=== PATIENT | female | born 1995 | race Caucasian/White ===

== ENCOUNTER 2019-08-23 06:37 | Outpatient (CLI) | payer BC ==
[2019-08-23 06:55] VITALS: BP 137/86
[2019-08-23 14:58] VITALS: PULSE 81; RESP 18; TEMP 96.8
--- NOTE | 2019-10-02 11:45 | P.MSEPDOC ---
Presenting Problems - Arrival Data Date of Arrival on Unit: 08/23/19 Time of Arrival on Unit: 06:39 Mode of Transport: Ambulatory - Complaint OB-Reason for Admission/Chief Complaint: Possible Onset of Labor Comment: pt stated contractions started at 0230 and range between 2-8 minutes apart Medical History - Information : 1 Para: 0 Term: 0 : 0 Abortions: Spontaneous or Elective: 0 Number of Living Children: 0 - Gestational Age Gestational Age by FARHAN (wks/days): 40 Weeks and 3 Days - History Complications: GBS+ Review of Systems - Review of Systems Constitutional: No problems Breast: No problems ENT: No problems Cardiovascular: No problems Respiratory: No problems Gastrointestinal: No problems Genitourinary: No problems Musculoskeletal: No problems Neurological: No problems Skin: No problems Vital Signs - Temperature Temperature: 96.8 F Temperature Source: Temporal Artery Scan - Pulse Right Brachial Pulse Rate: 81 Pulse Assessment Method: Automatic Cuff - Respirations Respiratory Rate: 18 Oxygen Delivery Method: Room Air O2 Sat by Pulse Oximetry: 99 - Blood Pressure Right Arm Blood Pressure: 137/86 Blood Pressure Mean: 103 Blood Pressure Source: Automatic Cuff Medical Screen Scoring (Pre) - Cervical Exam Dilation: 1-3 cm = 1 Effacement: More than 50% = 2 Membranes: Intact - Uterine Contractions Frequency: > 5 minutes apart = 1, > or = 36 weeks =2 Duration: > 40 seconds = 2 Intensity: N/A - Maternal Vital Signs Maternal Temperature: N/A Maternal Blood Pressure: N/A Signs of Preeclampsia: N/A Maternal Respirations: N/A - Maternal Trauma Maternal Trauma: N/A - Assessment - Baby A Baseline FHR: 130 Heart Rate - NICHD Category: Category I (Normal) = 0 NST: Reactive Position: N/A Station: N/A - Total Score - Baby A Total Score - Baby A: 8 - Total Score - Baby B Total Score - Baby B: 8 - Total Score - Baby C Total Score - Baby C: 8 - Level of Risk - Baby A Level of Risk - Baby A: Medium (6-9) - Level of Risk - Baby B Level of Risk - Baby B: Medium (6-9) - Level of Risk - Baby C Level of Risk - Baby C: Medium (6-9) Physician Notification (Pre) - Physician Notified Physician Notified Date: 08/23/19 Physician Notified Time: 07:50 New Order Received: Yes - Notification Comment Comment: pt discharged home and to keep appointment toay with Dr. Ibarra Medical Screen Scoring (Post) - Cervical Exam Dilation: 1-3 cm = 1 Effacement: More than 50% = 2 Membranes: Intact - Uterine Contractions Frequency: > 5 minutes apart = 1 Duration: > 40 seconds = 2 Intensity: N/A - Assessment - Baby A Heart Rate: 130 Heart Rate - NICHD Category: Category I (Normal) = 0 NST: Reactive Position: N/A Station: N/A - Total Score Total Score - Baby A: 6 Total Score - Baby B: 6 Total Score - Baby C: 6 - Post Treatment Level of Risk Post Treatment Level of Risk - Baby A: Medium (6-9) Post Treatment Level of Risk - Baby B: Medium (6-9) Post Treatment Level of Risk - Baby C: Medium (6-9) Physician Notification (Post) - Physician Notified Physician Notified Date: 08/23/19 Physician Notified Time: 07:59 Spoke With: Fred New Order Received: Yes (discharge with instruction, keep appt today at 1430) - Notification Comment Comment: latent labor, no cervical change, has appt today at 1430, wants no interventions Disposition - Disposition OB Disposition: Triage, Discharge to home Discharge Date: 08/23/19 Discharge Time: 08:06 I agree with the RN Medical Screening Exam: Yes Risk & Benefit of care provided described in d/c instruction: Yes Diagnosis: FALSE LABOR AT OR AFTER 37 COMPLETED WEEKS OF GESTATION
== END 2019-08-23 08:06 | disposition home or self-care (01) ==
LOC: FBPOP 06:37
PROVIDERS: ATTEND Obstetrics & Gynecology Obstetrics
DX: O47.1 False labor at or after 37 completed weeks of gestation (principal); Z3A.40 40 weeks gestation of pregnancy
CPT/HCPCS: 59025; 99213

== ENCOUNTER 2019-08-23 13:44 | Inpatient (IN) | payer BC ==
[2019-08-23] MEDS ORDERED: TERBUTALINE 1 MG/ML VIAL SQ PRN (15:34)
[2019-08-23] MEDS ORDERED: CARBOPROST TROMETHAMINE 250 MCG/ML 1 ML AMP IM PRN (15:34)
[2019-08-23] MEDS ORDERED: LIDOCAINE 0.5% (PF) 5 MG/ML (50 ML SDV) SQ PRN (15:34)
[2019-08-23] MEDS ORDERED: OXYTOCIN 10 UNIT/ML 1 ML VIAL IM PRN (15:34)
[2019-08-23] MEDS ORDERED: METHYLERGONOVINE 0.2 MG/ML 1 ML AMP IM PRN (15:34)
[2019-08-23] MEDS: LACTATED RINGERS 1,000 ML IV SCH ×3 (16:19→19:45)
[2019-08-23 17:22] LABS: Basophils % (A) 0 %; Eosinophils # (A) 0.1 k/uL (0-0.7); Eosinophils % (A) 0 %; HCT 37.7 % (34.0-46.0); HGB 12.8 gm/dL (11.4-16.0); Lymphocytes # (A) 1.2 k/uL (1.0-4.8); Lymphocytes % (A) 5 %; MCH 30.1 pg (25.0-35.0); MCHC 33.9 g/dL (31.0-37.0); MCV 88.6 fL (80.0-100.0); Mean Platelet Volume 7.6; Monocytes # (A) 0.5 k/uL (0-1.0); Monocytes % (A) 2 %; Neutrophils # (A) 20.4 k/uL (1.3-7.7); Neutrophils % (A) 91 %; Platelet Count 325 k/uL (150-450); RBC 4.26 m/uL (3.80-5.40); RDW 13.1 % (11.5-15.5); WBC 22.4 k/uL (3.8-10.6)
[2019-08-23] MEDS ORDERED: fentaNYL (PF) 50 MCG/ML 5 ML AMP ONE (18:27)
[2019-08-23] MEDS ORDERED: SODIUM CHLORIDE 0.9% 100 ML BAG ONE (18:27)
[2019-08-23] MEDS ORDERED: ROPIVACAINE 5MG/ML 20ML VIAL ONE (18:27)
[2019-08-23] MEDS ORDERED: OXYTOCIN 30 UNITS/500 ML NS 30 UNIT in SALINE 1 500ML.BAG IV SCH (21:15)
[2019-08-23] MEDS ORDERED: CITRIC ACID-SODIUM CITRATE 15 ML CUP PO ONE (22:10)
[2019-08-23] MEDS ORDERED: OXYTOCIN 10 UNIT/ML 1 ML VIAL ONE (22:23)
[2019-08-23] MEDS ORDERED: SUCCINYLCHOLINE CHLORIDE 100 MG/5 ML SYR IV ONE (22:23)
[2019-08-23] MEDS ORDERED: ONDANSETRON 4 MG/2 ML VIAL ONE (22:23)
[2019-08-23] MEDS ORDERED: PROPOFOL 10 MG/ML 20 ML VIAL IV ONE (22:23)
[2019-08-23] MEDS ORDERED: fentaNYL (PF) 50 MCG/ML 2 ML AMP ONE (22:23)
--- NOTE | 2019-08-23 23:18 | P.OP ---
Date of Procedure: 08/23/19 Preoperative Diagnosis: IUP at 40 and 3/sevenths weeks, active labor, GBS positive, arrest of descent Postoperative Diagnosis: Same Procedure(s) Performed: Primary low transverse section Anesthesia: epidural Surgeon: Aylin Ibarra Pediatric Speech Therapist #1: Kit Jauregui Estimated Blood Loss (ml): 400 IV fluids (ml): 1,000 Urine output (ml): 100 Pathology: none sent Condition: stable Disposition: observation Indications for Procedure: This pleasant 24-year-old 1 para 0 presented to labor and delivery in active labor earlier today. Patient consented to epidural placement after making minimal globe changer many hours. Patient underwent amniotomy and clear fluid was obtained. Patient progressed to complete began pushing infant was noted to be in the occiput posterior presentation patient was noted have severe tailbone pain and desires . After discussion patient elected primary secondary to discomfort and inability to push. Operative Findings: Normal uterus tubes and ovaries are appreciated, liveborn male delivered at 2244 weight of 7 lbs. 12 oz. Description of Procedure: Patient was taken back to the operating suite where epidural anesthesia was found be in adequate therefore general anesthesia was obtained without difficulty by the anesthesia department she had been prepped and draped previously in the dorsal supine position. A Pfannenstiel skin incision was made with the scalpel and carried through to the underlying layer of fascia. The fascial incision incised in the midline and the incision was extended laterally. The superior aspect of fascial incision was then grasped solis clamps, elevated and underlying rectus muscle was dissected off sharply. Attention then turned to the inferior aspect of the fascial incision which was grasped solis clamps, elevated and underlying rectus muscle was dissected off sharply. The rectus muscles were in the midline the peritoneum was identified and entered. The bladder blade was then inserted into the abdomen the vesicouterine peritoneum was identified and the bladder flap was created using sharp and blunt dissection. Hysterotomy incision was then made with the scalpel and the infant was encountered in the occiput posterior presentation and delivered in the usual fashion the umbilical cords doubly clamped and cut. Infant was handed off to awaiting RN. The placenta was then removed manually and the uterus was cleared of all clots and debris. The uterus was then removed from the abdomen the incision was closed with 0 Vicryl in a running locked fashion. A second layer of suture was used to obtain hemostasis. On inspection of the hysterotomy incision hemostasis was appreciated. The gutters were cleared of all clots and debris. Uterus was returned to the abdomen. On inspection the patient's uterine incision hemostasis was appreciated. The peritoneum was then loosely reapproximated the fascia was closed with 0 Vicryl in a running locked fashion from one lateral edge the other. The subcutaneous tissue was irrigated and closed with 3-0 Vicryl. The seen was then closed with 4-0 Vicryl in a subarticular fashion. All counts are correct 2 patient and tolerated delivery well.
--- NOTE | 2019-08-23 23:19 | P.HPOB ---
History of Present Illness H&P Date: 08/23/19 Chief Complaint: IUP @ 40 3/7 weeks, labor, gbs pos This is a 24-year-old 1 para 0 at 40 and 3/sevenths weeks that presents to labor and delivery with complaints of regular painful contractions. Patient has been receiving routine care with myself since the first trimester. This care is been essentially uncomplicated. Patient has good movement she states contractions are every 2-4 minutes. She denies loss of fluid or vaginal bleeding. On blood work blood type was noted to be O+. Rubella status noted to be immune, RPR nonreactive, hepatitis B surface antigen negative, GBS positive. Review of Systems Constitutional: Denies chills, Denies fatigue, Denies fever Ears, nose, mouth and throat: Denies headache Cardiovascular: Reports leg edema Respiratory: Denies dyspnea Gastrointestinal: Denies constipation, Denies diarrhea, Denies nausea, Denies vomiting Genitourinary: Reports Past Medical History History of Any Multi-Drug Resistant Organisms: None Reported Smoking Status: Never smoker - Past Family History Father Family Medical History: Hypertension Medications and Allergies Home Medications Medication Instructions Recorded Confirmed Type Pnv No.95/Ferrous Fum/Folic AC 1 each PO DAILY 08/23/19 08/23/19 History [ Multivitamin Tablet] Allergies Allergy/AdvReac Type Severity Reaction Status Date / Time Penicillins Allergy Rash/Hives Verified 08/23/19 06:47 Exam Osteopathic Statement: *. No significant issues noted on an osteopathic structural exam other than those noted in the History and Physical/Consult. Intake and Output 08/23/19 08/23/19 08/23/19 06:59 14:59 22:59 Other: Weight 93.44 kg Targeted physical exam is performed in this date in general this is a well- nourished well-developed female in no acute distress, breathing is noted to be nonlabored, heart has regular rate and rhythm, abdomen is gravid and appropriate for gestational age, on cervical exam she is 4/90/-1 station per RN exam. heart tones are noted to be category 1 and she is zain irregularly. Results Result Diagrams: 08/23/19 17:09 Assessment and Plan (1) Term Current Visit: Yes Status: Acute Code(s): Z34.90 - ENCNTR FOR SUPRVSN OF NORMAL , UNSP, UNSP TRIMESTER SNOMED Code(s): 11530596 (2) Active labor Current Visit: Yes Status: Acute Code(s): MGQ6116 - SNOMED Code(s): 171393627 (3) Positive GBS test Current Visit: Yes Status: Acute Code(s): B95.1 - STREPTOCOCCUS, GROUP B, CAUSING DISEASES CLASSD ELSWHR SNOMED Code(s): 710923857 Plan: Patient is admitted to labor and delivery, IV Kefzol is begun given her group beta strep positive rectovaginal culture. Options for analgesia are discussed with patient and declined.
[2019-08-23] MEDS ORDERED: IBUPROFEN IV 800 MG in SODIUM CHLORIDE 0.9% 250 ML IV ONE (23:24)
[2019-08-24] MEDS ORDERED: diphenhydrAMINE 25 MG CAP PO PRN
[2019-08-24] MEDS ORDERED: diphenhydrAMINE 50 MG CAP PO PRN
[2019-08-24] MEDS ORDERED: NALOXONE 0.4 MG/ML 1 ML VIAL IV PRN
[2019-08-24] MEDS ORDERED: HYDROcodone/APAP 5-325MG 1 EACH TAB PO PRN
[2019-08-24] MEDS ORDERED: ZOLPIDEM 5 MG TAB PO PRN
[2019-08-24] MEDS ORDERED: diphenhydrAMINE 50 MG/ML 1 ML VIAL IVP PRN ×2
[2019-08-24] MEDS ORDERED: ACETAMINOPHEN IV (For NPO) 1,000 MG in EMPTY BAG 1 BAG IVPB ONE
[2019-08-24] MEDS ORDERED: METOCLOPRAMIDE 5 MG/ML 2 ML VIAL IVP PRN
[2019-08-24] MEDS ORDERED: OXYTOCIN 20 UNITS/1000 ML NS 1,000 ML IV SCH
[2019-08-24] MEDS ORDERED: ONDANSETRON 4 MG/2 ML VIAL IVP PRN
[2019-08-24] MEDS: LACTATED RINGERS 1,000 ML IV SCH ×3 (00:17→20:30)
[2019-08-24 00:45] VITALS: RESP 16
[2019-08-24 06:48] LABS: Basophils % (A) 0 %; Eosinophils % (A) 0 %; HCT 29.7 % (34.0-46.0); HGB 10.2 gm/dL (11.4-16.0); Lymphocytes # (A) 2.1 k/uL (1.0-4.8); Lymphocytes % (A) 11 %; MCH 30.3 pg (25.0-35.0); MCHC 34.4 g/dL (31.0-37.0); MCV 88.1 fL (80.0-100.0); Mean Platelet Volume 7.6; Monocytes # (A) 0.8 k/uL (0-1.0); Monocytes % (A) 4 %; Neutrophils # (A) 15.6 k/uL (1.3-7.7); Neutrophils % (A) 83 %; Platelet Count 298 k/uL (150-450); RBC 3.37 m/uL (3.80-5.40); RDW 13.5 % (11.5-15.5); WBC 18.9 k/uL (3.8-10.6)
--- NOTE | 2019-08-24 08:07 | P.PNOBGPC ---
Subjective - Subjective Principal diagnosis: POD 1 LTCS Interval history: Patient did well overnight. She states her pain is well-controlled. She is ambulating without difficulty, her El was removed this morning. She states she is tolerating clear liquids without nausea or vomiting. Her lochia is minimal. Patient reports: Reports appetite normal, Reports pain well controlled, Reports ambulating normally : doing well, nursing well Objective - Vital Signs Latest vital signs: Vital Signs Temp Pulse Resp BP Pulse Ox 08/24/19 03:51 98.4 F 120 H 16 121/64 94 L 08/24/19 01:20 99.2 F 116 H 16 139/74 98 08/24/19 00:50 99.0 F 102 H 16 132/73 96 08/24/19 00:20 98.2 F 94 16 130/77 98 08/24/19 00:05 98.5 F 97 16 123/66 100 08/23/19 23:50 97.8 F 94 16 118/69 100 08/23/19 23:35 97.6 F 108 H 16 116/68 96 08/23/19 23:20 97.6 F 115 H 16 117/70 96 08/23/19 14:55 97.3 F L 97 18 142/80 98 Intake and Output 08/23/19 08/24/19 08/24/19 22:59 06:59 14:59 Output Total 500 1500 Balance -500 -1500 Output: Urine 500 1500 Other: Weight 93.44 kg - Exam Extremities: Present: normal Abdomen: Present: normal appearance, soft Incision: Present: normal, dry Uterus: Present: normal, firm - Labs Labs: Abnormal Lab Results - Last 24 Hours (Table) 08/23/19 08/24/19 Range/Units 17:09 06:15 WBC 22.4 H 18.9 H (3.8-10.6) k/uL RBC 3.37 L (3.80-5.40) m/uL Hgb 10.2 L (11.4-16.0) gm/dL Hct 29.7 L (34.0-46.0) % Neutrophils # 20.4 H 15.6 H (1.3-7.7) k/uL Assessment and Plan (1) Term Current Visit: Yes Status: Acute Code(s): Z34.90 - ENCNTR FOR SUPRVSN OF NORMAL , UNSP, UNSP TRIMESTER SNOMED Code(s): 93467736 (2) Active labor Current Visit: Yes Status: Acute Code(s): RGZ5599 - SNOMED Code(s): 899369753 (3) Positive GBS test Current Visit: Yes Status: Acute Code(s): B95.1 - STREPTOCOCCUS, GROUP B, CAUSING DISEASES CLASSD ELSR SNOMED Code(s): 879344441 (4) S/P section Current Visit: Yes Status: Acute Code(s): Z98.891 - HISTORY OF UTERINE SCAR FROM PREVIOUS SURGERY SNOMED Code(s): 892601630 Plan: Patient is doing well postoperatively, will increase ambulation and await spon taneous void. Plan to advance diet this morning to regular. Continue routine care.
[2019-08-24] MEDS ORDERED: PRENATAL VIT-IRON-FOLIC ACID 1 EACH CAP PO SCH (09:00)
[2019-08-24] MEDS: IBUPROFEN 600 MG TAB PO PRN ×2 (14:59→21:01)
[2019-08-24] MEDS: SENNOSIDES-DOCUSATE SODIUM 1 EACH TAB PO SCH ×2 (15:40→19:44)
[2019-08-24] MEDS: ACETAMINOPHEN TAB 325 MG TAB PO PRN (23:49)
[2019-08-25] MEDS: IBUPROFEN 600 MG TAB PO PRN ×2 (02:45→10:49)
[2019-08-25] MEDS: ACETAMINOPHEN TAB 325 MG TAB PO PRN ×2 (06:15→15:38)
--- NOTE | 2019-08-25 07:32 | P.DS ---
Providers Date of admission: 08/23/19 15:31 Expected date of discharge: 08/25/19 Attending physician: Aylin Ibarra Primary care physician: Stated None - Discharge Diagnosis(es) (1) Term Current Visit: Yes Status: Acute (2) Active labor Current Visit: Yes Status: Acute (3) Positive GBS test Current Visit: Yes Status: Acute (4) S/P section Current Visit: Yes Status: Acute Hospital Course: This 24-year-old 1 para 0 @ 40 / presented to labor and delivery in active early labor on 08/22. Patient had been receiving routine care which has been essentially uncomplicated with myself since the first trimester. For full details on this patient please see the dictated history and physical. Patient was noted to be 4 cm and elected epidural placement. Patient progressed slowly through labor eventually becoming complete and started pushing and with minimal descent of the head in extreme discomfort patient elected primary . was performed without difficulty for further details please see the operative report. Patient's postoperative course has been uneventful. On this postop day #2 she is ambulating and voiding without difficulty. She is tolerating a regular diet without nausea or vomiting. She states her pain was well-controlled with Tylenol/ibuprofen. She states her lochia is minimal. She is struggling with breast-feeding but is continuing to work on it. She states she would like discharge home later today. Plan - Discharge Summary New Discharge Prescriptions: No Action Pnv No.95/Ferrous Fum/Folic AC [ Multivitamin Tablet] 1 each PO DAILY Discharge Medication List Pnv No.95/Ferrous Fum/Folic AC [ Multivitamin Tablet] 1 each PO DAILY 08/23/19 [History] Follow up Appointment(s)/Referral(s): Aylin Ibarra DO [Doctor of Osteopathic Medicine] - 2 Weeks Patient Instructions/Handouts: (DC), (GEN) Discharge Disposition: HOME SELF-CARE
[2019-08-25] MEDS: SENNOSIDES-DOCUSATE SODIUM 1 EACH TAB PO SCH (08:26)
[2019-08-25 17:27] VITALS: BP 120/63; PULSE 77; TEMP 98.6
== END 2019-08-25 17:20 | disposition home or self-care (01) | DRG 788 ==
LOC: FBPOP 13:44 → 4FBP 15:31
PROVIDERS: ADMIT Obstetrics & Gynecology Obstetrics; ATTEND Obstetrics & Gynecology Obstetrics
PROC: 10D00Z1 Extraction of Products of Conception, Low, Open Approach (ICD-10-PCS; principal; 2019-08-23 22:11)
DX: O99.824 Streptococcus B carrier state complicating childbirth (principal); Z37.0 Single live birth; Z3A.40 40 weeks gestation of pregnancy; Z82.49 Family history of ischemic heart disease and other diseases of the circulatory system; O62.1 Secondary uterine inertia
CPT/HCPCS: 59025; 85025; 86850; 86900; 86901; 99213

== ENCOUNTER → 2023-06-27 | Outpatient (CLI) | payer BC ==
--- NOTE | 2023-06-28 12:07 | XR ---
EXAMINATION TYPE: XR chest 2V DATE OF EXAM: 06/27/2023 COMPARISON: None HISTORY: 27-year-old female [id number], shortness of breath, chest tightness TECHNIQUE: Frontal and lateral views FINDINGS: The cardiomediastinal silhouette, aorta, and pulmonary vasculature are within normal limits mild patc hy medial right basilar opacity. No other consolidation or pleural effusion seen. IMPRESSION: Patchy medial right middle lobe atelectasis versus early infiltrate. Correlate with symptoms.
== END | disposition home or self-care (01) ==
LOC: RADXRYALE 14:54
PROVIDERS: ATTEND Physician Assistant
DX: R06.02 Shortness of breath (principal); R07.89 Other chest pain
CPT/HCPCS: 71046